=== PATIENT | male | born 1945 | race Two or more races ===

== ENCOUNTER 2022-07-29 08:23 | Inpatient (IN) | payer OTHER ==
[~2022-07-29] VITALS: Ht 167.6 cm; Wt 70.8 kg
[2022-08-10] MEDS ORDERED: DICLOFENAC POTA50 MG (09:41)
[2022-08-10] MEDS ORDERED: OMEPRAZOLE20 MG (09:41)
[2022-08-10] MEDS ORDERED: GABAPENTIN300 M2 (09:41)
[2022-08-10] MEDS ORDERED: AMLODIPINE BESY10 MG (09:41)
[2022-08-10] MEDS ORDERED: VITAMIN B-121000 MCG (09:41)
[2022-08-10] MEDS ORDERED: VALSARTAN-HCTZ1 EAC1 (09:41)
[2022-08-12] MEDS ORDERED: ELIQUIS2.5 MG PO (15:11)
[2022-08-12] MEDS ORDERED: PERCOCET 5-3251 EACH PO (15:11)
[2022-08-12] MEDS ORDERED: DUI500 PO (15:11)
== END 2022-08-12 17:07 | DRG 470 ==
LOC: O/R 08-10 05:26 → SURG 08-10 05:26
PROVIDERS: ADMIT Orthopaedic Surgery; ATTEND Orthopaedic Surgery
PROC: 0SRD0J9 Replacement of Left Knee Joint with Synthetic Substitute, Cemented, Open Approach (ICD-10-PCS; principal; 2022-08-10 13:00)
DX: M17.12 Unilateral primary osteoarthritis, left knee (principal); D62 Acute posthemorrhagic anemia; M22.12 Recurrent subluxation of patella, left knee; I10 Essential (primary) hypertension; Z96.652 Presence of left artificial knee joint; Z20.822 Contact with and (suspected) exposure to COVID-19